=== PATIENT | female | born 1975 | race Two or more races ===

== ENCOUNTER 2018-09-08 09:00 | Day surgery (SDC) | payer OTHER | END 2018-09-08 20:00 | disposition home or self-care (01) | LOC: CIR.AMB 09:00 | DX: N71.1 Chronic inflammatory disease of uterus (principal) ==

== ENCOUNTER 2018-12-29 11:45 | Inpatient (IN) | payer OTHER ==
[~2018-12-29] VITALS: Ht 157.5 cm; Wt 63.5 kg
[2019-01-19] MEDS ORDERED: NAPROXEN500 M1 PO (15:05)
== END 2019-01-23 14:33 | disposition home or self-care, planned readmission (81) | DRG 743 ==
LOC: O/R 01-21 07:00 → OB/GYN 01-21 09:06 → O/R 01-21 09:06 → OB/GYN 01-21 15:16
PROVIDERS: ADMIT Obstetrics & Gynecology Obstetrics
PROC: 0UT90ZZ Resection of Uterus, Open Approach (ICD-10-PCS; principal; 2019-01-21 07:00)
DX: D25.1 Intramural leiomyoma of uterus (principal); D25.0 Submucous leiomyoma of uterus; D25.2 Subserosal leiomyoma of uterus; D26.1 Other benign neoplasm of corpus uteri; N72 Inflammatory disease of cervix uteri